=== PATIENT | male | born 1960 | race Caucasian/White ===

== ENCOUNTER 2016-12-31 19:47 | Emergency (ER) | payer MEDICAID ==
--- NOTE | 2016-12-31 19:52 | EDPHY ---
H & P Smoking Status: Never smoked Time Seen by Provider: 12/31/16 19:51 HPI/ROS: CHIEF COMPLAINT: Overdose HISTORY OF PRESENT ILLNESS: Zahra called 911 because the patient came into the coffee shop at [address] [place] [address] saying that he was going to overdose and kill himself and then went into the bathroom. On arrival the responding public safety police found him comatose on the bathroom floor. EMS brought him into the department combative stating he overdosed on his atenolol. REVIEW OF SYSTEMS: Denies any recent illnesses. A comprehensive 10 point review of systems is otherwise negative aside from elements mentioned in the history of present illness, but further history and review of systems is limited because of the patient's altered mental status on arrival.. PAST MEDICAL HISTORY: History and physical dated 09/09/2016 personally reviewed by myself includes GERD, hypertension, chronic back pain, mood disorder , alcoholism. Social history: Recent heavy alcohol. General Appearance: Combative and intermittently calm and screaming. Eyes: No scleral icterus. ENT, Mouth: Normal mucous membranes. Respiratory: Normal respiratory effort, breath sounds equal, lungs are clear to auscultation. Cardiovascular: Regular rate and rhythm. Gastrointestinal: Abdomen is soft and non tender. Neurological: Slurred speech, combative. Yelling and screaming saying "you fuckers" and throwing urinal and screaming in the room. Face symmetric, normal movement and sensation in all extremities. Skin: Warm and dry, no rashes. Musculoskeletal: No peripheral edema and no joint swelling. Psychiatric: Not agitated. Suicidal ideation. Emergency Department course/MDM: 10 mg Haldol and 2 mg Ativan for combative behavior, yelling and screaming, kicking and throwing things, to facilitate appropriate medical evaluation and for safety of patient and staff. Patient has an allergy listed to benzodiazepines in his chart but the result of getting the medication is listed as him getting agitated and belligerent. 2015: Calm and asleep after medical sedation. 2305: Vital signs at 9:55 p.m. and 97/55 blood pressure and heart rate 69. Signed out to Dr. Jim Snow at this time with plan for psychiatric re- evaluation when clinically sober and his sedation has worn off (Roland Fam) Constitutional: Initial Vital Signs Temperature (C) 36.2 C 12/31/16 20:31 Heart Rate 70 12/31/16 20:31 Respiratory Rate 16 12/31/16 20:31 Blood Pressure 143/87 H 12/31/16 20:31 O2 Sat (%) 93 12/31/16 20:31 O2 Delivery Mode Room Air O2 (L/minute) 3 Allergies/Adverse Reactions: Benzodiazepines Allergy (Verified 12/31/16 20:25) Other-Enter Comments Home Medications: Medication Instructions Recorded Esomeprazole Mag Trihydrate 40 mg PO DAILY 09/09/16 [Nexium] Esomeprazole Mag Trihydrate 40 mg PO DAILY #30 cap. 09/29/16 [Nexium] Atenolol 12/31/16 Medical Decision Making - Diagnostics EKG Interpretation: 12-lead EKG interpreted by me; official reading is in trace master. My interpretation is sinus rhythm with QRS 122, intraventricular conduction delay. Rate 63. (Roland Fam) ED Course/Re-evaluation: 2300 care assumed by me from Dr. Fam pending sobriety and mental health evaluation. [address] patient signed out to Dr. Conway pending mental health evaluation. There been no issues with this patient during my care overnight. (Tyler Snow) Differential Diagnosis: Differential diagnosis considered for depression including functional and major depression, situational depression, medication side effect, drugs and alcohol abuse. (Roland Fam) Critical Care Time: Critical care time spent by me, Dr. Fam, exclusively with the care of this patient was 30 minutes, exclusive of PA or LACING CUTTER time and exclusive of separate procedures. The organ system at risk was neuropsychiatric and I ordered multiple diagnostic studies including EKG and labs, cardiac monitoring, sedation with haloperidol and Ativan for excited delirium; to stabilize the patient and prevent worsening of the patient's condition. (Roland Fam) Other Provider: Patient's care transferred to md at 7:[address] Jim Lee. We are awaiting psychiatric evaluation. He is clinically sober. The patient has been medically cleared. His vital signs remained stable. 12:05 p.m. patient has been evaluated by Mental Health. They will release the hold. He had questions about his antihypertensives. He states that he occasionally blacks out when taking them and that it is associated with alcohol use only 75% of the time. He takes clonidine and states that he has severe rebound hypertension. I suggested that he discontinue the clonidine and increase his metoprolol to 50 mg twice daily. He had taken at 100 mg a day before. He will follow up with his primary doctor Tamir for re-evaluation in 2 days. (Jose Ramon Conway) - Data Points Laboratory Results: Laboratory Results 12/31/16 20:00 12/31/16 20:00 Medications Given: Discontinued Medications Haloperidol Lactate (Haldol Injection) 10 mg IM EDNOW ONE Stop: 12/31/16 19:59 Last Admin: 12/31/16 20:06 Dose: 10 mg Lorazepam (Ativan Injection) 2 mg IM EDNOW ONE Stop: 12/31/16 19:59 Last Admin: 12/31/16 20:06 Dose: 2 mg Departure - Departure Clinical Impression: Alcohol intoxication Qualifiers: Complication of substance-induced condition: uncomplicated Qualified Code(s): F10.120 - Alcohol abuse with intoxication, uncomplicated Condition: Good Instructions: Alcohol Intoxication (ED) Additional Instructions: Discontinue the clonidine and take your metoprolol 50 mg twice daily. Monitor your blood pressure is and report to Dr. Garnett in 48 hours. Referrals: NONE *PRIMARY CARE P,. [Primary Care Provider] - As per Instructions [facility],. [Clinic] - As per Instructions Maris Garnett [Certified Nurse Practioner] - As per Instructions
[2016-12-31] MEDS ORDERED: HALOPERIDOL LACT 5 MG/ML INJ ONE (19:56)
[2016-12-31] MEDS ORDERED: LORazepam 2 MG/ML INJ ONE (19:56)
[2016-12-31] MEDS ORDERED: HALOPERIDOL LACT 5 MG/ML INJ IM ONE (19:58)
[2016-12-31] MEDS ORDERED: LORazepam 2 MG/ML INJ IM ONE (19:58)
[2016-12-31 20:17] LABS: % IMMATURE GRANULYOCYTES 0.2 % (0.0-1.1); ABSOLUTE IMMATURE GRANULOCYTES 0.01 10^3/uL (0.00-0.10); ADD DIFF? NO; ADD MORPH? NO; ADD SCAN? NO; ATYPICAL LYMPHOCYTE FLAG 0 (0-99); FRAGMENT RBC FLAG 0 (0-99); HEMATOCRIT 43.4 % (40.0-51.0); HEMOGLOBIN 14.7 g/dL (13.7-17.5); LEFT SHIFT FLG 0 (0-99); LIPEMIA HEMOLYSIS FLAG 90 (0-99); MEAN CELL HEMOGLOBIN 32.2 pg (27.9-34.1); MEAN CELL HEMOGLOBIN CONCENTR. 33.9 g/dL (32.4-36.7); MEAN CELL VOLUME 95.2 fL (81.5-99.8); MEAN PLATELET VOLUME 10.5 fL (8.7-11.7); PLATELET CLUMPS FLAG 10 (0-99); PLATELET COUNT 212 10^3/uL (150-400); RED BLOOD CELL COUNT 4.56 10^6/uL (4.40-6.38); RED CELL DISTRIBUTION WIDTH 13.6 % (11.5-15.2)
--- NOTE | 2016-12-31 20:19 | CPEKG ---
Heart Rate: 63 RR Interval: 952 P-R Interval: 164 QRSD Interval: 122 QT Interval: 504 QTC Interval: 517 P [place]: 49 QRS [place]: 73 T Wave [place]: 38 EKG Severity - ABNORMAL ECG - EKG Impression: SINUS RHYTHM EKG Impression: IVCD, CONSIDER ATYPICAL RBBB Electronically Signed By: Roland Fam 31-Dec-2016 20:23:04
[2016-12-31 20:35] VITALS: TEMP 97.2
[2016-12-31 20:36] LABS: ANION GAP 14 mEq/L (8-16); CALCIUM 8.8 mg/dL (8.5-10.4); CARBON DIOXIDE 21 mEq/l (22-31); CHLORIDE 116 mEq/L (97-110); CREATININE 0.9 mg/dL (0.7-1.3); ETHANOL SERUM 247 mg/dL (0-10); GLOMERULAR FILTRATION RATE > 60; GLUCOSE 97 mg/dL (70-100); POTASSIUM 5.2 mEq/L (3.5-5.2); SALICYLATE < 1.0 mg/dL (2.0-20.0); SODIUM 151 mEq/L (134-144)
[2017-01-01 12:11] VITALS: BP 149/90; PULSE 68; RESP 20; O2SAT 94
== END 2017-01-01 12:50 | disposition home or self-care (01) ==
LOC: EDUNIT#
DX: F10.120 Alcohol abuse with intoxication, uncomplicated (principal); I10 Essential (primary) hypertension
CPT/HCPCS: 80305; G0480

== ENCOUNTER 2017-01-12 08:17 | Emergency (ER) | payer MEDICAID ==
--- NOTE | 2017-01-12 08:17 | EDPHY ---
H & P Time Seen by Provider: 01/12/17 08:17 HPI/ROS: CHIEF COMPLAINT: Chest pain HISTORY OF PRESENT ILLNESS: 56-year-old man was at the grocery store pharmacy be refilling his atenolol prescription when he developed lightheadedness and near syncope. He describes having left-sided chest pain yesterday and then continuously since since 5:00 a.m. which does not radiate not associated with other symptoms. No nausea or vomiting or diaphoresis. Called EMS and was brought to the emergency department for evaluation. He received aspirin by EMS and was 210/130 blood pressure in the ambulance. Chest pain does not radiate, not associated with cough or shortness of breath. A little bit worse with movement. REVIEW OF SYSTEMS: Eye: no change in vision ENT: no sore throat Cardiac: HPI, no actual syncope Pulmonary: no cough or SOB Abdomen: no vomiting, diarrhea, abdominal pain Musculoskeletal: Chronic back pain unchanged from usual Skin: no rash Neuro: no headache Constitutional: no fever : no urinary symptoms A comprehensive 10 point review of systems is otherwise negative aside from elements mentioned in the history of present illness. PAST MEDICAL HISTORY: H&P dated 09/08/2016 reviewed includes hypertension, chronic back pain, alcoholism. Social history: No alcohol for 48 hours, primary care in [place]. No cocaine or other drugs. No recent travel or immobilization. Family history: No coronary disease General Appearance: Alert and conversant, cooperative. Eyes: No scleral icterus. ENT, Mouth: Normal mucous membranes. Respiratory: Normal respiratory effort, breath sounds equal, lungs are clear to auscultation. Cardiovascular: Regular rate and rhythm. Gastrointestinal: Abdomen is soft and non tender. Neurological: Alert and oriented x3. Not confused Normally conversant. Face symmetric, normal movement and sensation in all extremities. Not tremulous. Skin: Warm and dry, no rashes. Musculoskeletal: No peripheral edema and no joint swelling. No calf tenderness. Psychiatric: Not agitated. Anxious. Emergency Department course/MDM: 855: Minimal chest pain. Usual oral atenolol 50 mg ordered. Normal oxygen saturation, symptoms resolved spontaneously, serial troponin negative. EKG does not show dynamic changes. Patient is discharged with outpatient primary care follow-up in [place] or with Cardiology in [place]. He does not have evidence of severe alcohol withdrawal in the emergency department. Constitutional: Initial Vital Signs Temperature (C) 36.8 C 01/12/17 08:35 Heart Rate 108 H 01/12/17 08:35 Respiratory Rate 20 01/12/17 08:35 Blood Pressure 190/132 H 01/12/17 08:35 O2 Sat (%) 98 01/12/17 08:35 O2 Delivery Mode Room Air Allergies/Adverse Reactions: Benzodiazepines Allergy (Verified 12/31/16 20:25) Other-Enter Comments Home Medications: Medication Instructions Recorded Esomeprazole Mag Trihydrate 40 mg PO DAILY 09/09/16 [Nexium] Esomeprazole Mag Trihydrate 40 mg PO DAILY #30 09/29/16 [Nexium] Atenolol 12/31/16 Medical Decision Making - Diagnostics EKG Interpretation: 12-lead EKG interpreted by me; official reading is in trace master. My interpretation is sinus rhythm, no acute ischemic changes, rate 95 Imaging: Chest x-ray personally interpreted by myself is normal. Differential Diagnosis: Differential diagnosis considered for chest pain including but not limited to myocardial ischemia, aortic dissection, pericarditis, pulmonary embolus, chest wall pain, pleural inflammation and pulmonary infectious causes. - Data Points Laboratory Results: Laboratory Results 01/12/17 08:25 01/12/17 08:40 01/12/17 01/12/17 01/12/17 11:05 08:40 08:25 WBC RBC Hgb Hct MCV MCH MCHC RDW Plt Count MPV Neut % (Auto) Lymph % (Auto) [place] % (Auto) Eos % (Auto) Baso % (Auto) Nucleat RBC Rel Count Absolute Neuts (auto) Absolute Lymphs (auto) Absolute Monos (auto) Absolute Eos (auto) Absolute Basos (auto) Absolute Nucleated RBC Immature Gran % Immature Gran # Sodium 138 mEq/L mEq/L REJ (134-144) Potassium 4.0 mEq/L mEq/L TNP (3.5-5.2) Chloride 107 mEq/L mEq/L TNP (97-110) Carbon Dioxide 18 mEq/l L mEq/l TNP (22-31) Anion Gap 13 mEq/L mEq/L TNP (8-16) BUN 12 mg/dL mg/dL TNP (7-23) Creatinine 0.8 mg/dL mg/dL TNP (0.7-1.3) Estimated GFR > 60 TNP Glucose 113 mg/dL H mg/dL TNP (70-100) Calcium 8.9 mg/dL mg/dL TNP (8.5-10.4) Troponin I < 0.012 ng/mL ng/mL < 0.012 ng/mL ng/mL REJ (0-0.034) (0-0.034) Specimen Hemolysis WELL LOGGING M[employer] ANALYSIS CAPTAIN 01/12/17 08:25 WBC 5.28 10^3/uL 10^3/uL (3.80-9.50) RBC 4.72 10^6/uL 10^6/uL (4.40-6.38) Hgb 15.4 g/dL g/dL (13.7-17.5) Hct 46.4 % % (40.0-51.0) MCV 98.3 fL fL (81.5-99.8) MCH 32.6 pg pg (27.9-34.1) MCHC 33.2 g/dL g/dL (32.4-36.7) RDW 13.6 % % (11.5-15.2) Plt Count 179 10^3/uL 10^3/uL (150-400) MPV 10.4 fL fL (8.7-11.7) Neut % (Auto) 64.4 % % (39.3-74.2) Lymph % (Auto) 26.7 % % (15.0-45.0) [place] % (Auto) 6.3 % % (4.5-13.0) Eos % (Auto) 1.7 % % (0.6-7.6) Baso % (Auto) 0.9 % % (0.3-1.7) Nucleat RBC Rel Count 0.0 % % (0.0-0.2) Absolute Neuts (auto) 3.40 10^3/uL 10^3/uL (1.70-6.50) Absolute Lymphs (auto) 1.41 10^3/uL 10^3/uL (1.00-3.00) Absolute Monos (auto) 0.33 10^3/uL 10^3/uL (0.30-0.80) Absolute Eos (auto) 0.09 10^3/uL 10^3/uL (0.03-0.40) Absolute Basos (auto) 0.05 10^3/uL 10^3/uL (0.02-0.10) Absolute Nucleated RBC 0.00 10^3/uL 10^3/uL (0-0.01) Immature Gran % 0.0 % % (0.0-1.1) Immature Gran # 0.00 10^3/uL 10^3/uL (0.00-0.10) Sodium Potassium Chloride Carbon Dioxide Anion Gap BUN Creatinine Estimated GFR Glucose Calcium Troponin I Specimen Hemolysis Medications Given: Discontinued Medications Atenolol (Tenormin) 50 mg PO EDNOW ONE Stop: 01/12/17 08:54 Last Admin: 01/12/17 09:18 Dose: 50 mg Departure - Departure Disposition: Home, Routine, Self-Care Clinical Impression: Chest pain Qualifiers: Chest pain type: unspecified Qualified Code(s): R07.9 - Chest pain, unspecified Condition: Good Instructions: Chest Pain (ED) Referrals: Patient,NotPresent [Unknown] - As per Instructions (your doctor in [place]) Troy Amador MD [Medical Doctor] - As per Instructions
--- NOTE | 2017-01-12 08:29 | CPEKG ---
Heart Rate: 95 RR Interval: 632 P-R Interval: 140 QRSD Interval: 106 QT Interval: 380 QTC Interval: 478 P [place]: 60 QRS [place]: 81 T Wave [place]: 40 EKG Severity - BORDERLINE ECG - EKG Impression: SINUS RHYTHM EKG Impression: BORDERLINE PROLONGED QT INTERVAL Electronically Signed By: Roland Fam 12-Jan-2017 09:26:25
[2017-01-12 08:37] LABS: ADD DIFF? NO; ADD MORPH? NO; ADD SCAN? NO; ATYPICAL LYMPHOCYTE FLAG 0 (0-99); FRAGMENT RBC FLAG 0 (0-99); HEMATOCRIT 46.4 % (40.0-51.0); HEMOGLOBIN 15.4 g/dL (13.7-17.5); LEFT SHIFT FLG 0 (0-99); LIPEMIA HEMOLYSIS FLAG 80 (0-99); MEAN CELL HEMOGLOBIN 32.6 pg (27.9-34.1); MEAN CELL HEMOGLOBIN CONCENTR. 33.2 g/dL (32.4-36.7); MEAN CELL VOLUME 98.3 fL (81.5-99.8); MEAN PLATELET VOLUME 10.4 fL (8.7-11.7); PLATELET CLUMPS FLAG 0 (0-99); PLATELET COUNT 179 10^3/uL (150-400); RED BLOOD CELL COUNT 4.72 10^6/uL (4.40-6.38); RED CELL DISTRIBUTION WIDTH 13.6 % (11.5-15.2)
[2017-01-12 08:38] VITALS: TEMP 98.2
[2017-01-12] MEDS ORDERED: ATENOLOL 50 MG TAB PO ONE (08:53)
[2017-01-12 09:25] LABS: ANION GAP 13 mEq/L (8-16); CALCIUM 8.9 mg/dL (8.5-10.4); CARBON DIOXIDE 18 mEq/l (22-31); CHLORIDE 107 mEq/L (97-110); CREATININE 0.8 mg/dL (0.7-1.3); GLOMERULAR FILTRATION RATE > 60; GLUCOSE 113 mg/dL (70-100); SODIUM 138 mEq/L (134-144)
[2017-01-12 09:37] LABS: TROPONIN I < 0.012 ng/mL (0-0.034)
[2017-01-12 10:04] VITALS: RESP 16
[2017-01-12 12:04] VITALS: BP 164/104; PULSE 73; O2SAT 96
== END 2017-01-12 12:03 | disposition home or self-care (01) ==
LOC: EDUNIT#
DX: R07.9 Chest pain, unspecified (principal); I10 Essential (primary) hypertension

== ENCOUNTER 2017-02-08 00:49 | Emergency (ER) | payer MEDICAID ==
[2017-02-08 01:04] VITALS: TEMP 97.7
--- NOTE | 2017-02-08 01:29 | EDPHY ---
H & P Stated Complaint: left foot swelling on and off for several months, worse today Time Seen by Provider: 02/08/17 01:21 HPI/ROS: CHIEF COMPLAINT: Bilateral leg swelling HISTORY OF PRESENT ILLNESS: Patient is a 56-year-old man with a history of hypertension and alcoholism who comes to the emergency department complaining of bilateral lower extremity swelling. States that it has been this way on off for the last month but is worse over the last 3 days. He has not had a fever. He denies any trauma. He denies any travel. He does smoke. He denies chest pain or shortness of breath. Does have blisters on the heels of his feet. REVIEW OF SYSTEMS: Constitutional: denies: chills, fever, recent illness, recent injury EENTM: denies: blurred vision, double vision, nose congestion Respiratory: denies: cough, shortness of breath Cardiac: denies: chest pain, irregular heart rate, lightheadedness, palpitations Gastrointestinal/Abdominal: denies: abdominal pain, diarrhea, nausea, vomiting, blood streaked stools Genitourinary: denies: dysuria, frequency, hematuria, pain Musculoskeletal: denies: joint pain, muscle pain Skin: see HPI Neurological: denies: headache, numbness, paresthesia, tingling, dizziness, weakness Hematologic/Lymphatic: denies: blood clots, easy bleeding, easy bruising Immunologic/allergic: denies: HIV/AIDS, transplant EXAM: GENERAL: Well-appearing, well-nourished and in no acute distress. HEAD: Atraumatic, normocephalic. EYES: Pupils equal round and reactive to light, extraocular movements intact, sclera anicteric, conjunctiva are normal. ENT: TMs normal, nares patent, oropharynx clear without exudates. Moist mucous membranes. NECK: Normal range of motion, supple without lymphadenopathy or JVD. LUNGS: Breath sounds clear to auscultation bilaterally and equal. No wheezes rales or rhonchi. HEART: Regular rate and rhythm without murmurs, rubs or gallops. ABDOMEN: Soft, nontender, normoactive bowel sounds. No guarding, no rebound. No masses appreciated. BACK: No CVA tenderness, no spinal tenderness, step-offs or deformities EXTREMITIES: 1+ pitting edema bilaterally. Not warm to the touch, NEUROLOGICAL: Cranial nerves II through XII grossly intact. Normal speech, normal gait. 5/5 strength, normal movement in all extremities, normal sensation PSYCH: Normal mood, normal affect. SKIN: Very minimal erythema over lower shins, erythema to bottom of feet with several blisters on heels. Not broken. Source: Patient Exam Limitations: No limitations - Personal History Current Tetanus/Diphtheria Vaccine: Unsure Current Tetanus Diphtheria and Acellular Pertussis (TDAP): Unsure Tetanus Vaccine Date: <10 years - Medical/Surgical History Hx Asthma: No Hx Chronic Respiratory Disease: No Hx Diabetes: No Hx Cardiac Disease: No Hx Renal Disease: No Hx Cirrhosis: No Hx Alcoholism: Yes Hx HIV/AIDS: No Hx Splenectomy or Spleen Trauma: No Other PMH: IBS, ETOH abuse, HTN, Back Pain, possible CVA, pre-diabetic - Family History Significant Family History: Hypertension - Social History Smoking Status: Never smoked Alcohol Use: Heavy Drug Use: None Constitutional: Initial Vital Signs Temperature (C) 36.5 C 02/08/17 01:02 Heart Rate 72 02/08/17 01:02 Respiratory Rate 18 02/08/17 01:02 Blood Pressure 197/111 H 02/08/17 01:02 O2 Sat (%) 98 02/08/17 01:02 O2 Delivery Mode Room Air Allergies/Adverse Reactions: Benzodiazepines Allergy (Verified 12/31/16 20:25) Other-Enter Comments diazepam [From Valium] Allergy (Verified 02/08/17 00:59) Home Medications: Medication Instructions Recorded Esomeprazole Mag Trihydrate 40 mg PO DAILY 09/09/16 [Nexium] Esomeprazole Mag Trihydrate 40 mg PO DAILY #30 junior. 09/29/16 [Nexium] Atenolol 12/31/16 Clindamycin HCl [Clindamycin] 450 mg PO TID #30 cap 02/08/17 Clonidine 02/08/17 Medical Decision Making - Diagnostics Imaging: Study: Ultrasound of the: Lower extremities Indication: Lower extremity swelling Results: US scan of the lower extremities was obtained. The results of the study are negative for DVT. The study was read by the radiologist, Dr. Hnerique Plummer. I viewed the images myself on the PACS system. X-ray: chest x-ray was obtained. I viewed the images myself on the PACS system. My interpretation of the images is: negative for acute disease . The radiologist interpretation is pending. ED Course/Re-evaluation: We discussed the patient's lab and ultrasound results. They are very reassuring. Suspect that he has a low-grade cellulitis. I will start him on antibiotics. He agrees not to drink. We discussed indications for returning and the need for follow-up. He is currently afebrile has a normal white blood cell count. Differential Diagnosis: Partial list of the Differential diagnosis considered include but were not limited to; DVT, cellulitis, trench foot , phlebitis and although unlikely based on the history and physical exam, I also considered renal failure, heart failure, trauma. I discussed these differential diagnoses and the plan with the patient as well as the usual and expected course. The patient understands that the diagnosis is provisional and that in medicine we are not always correct and that further workup is often warranted. Usual and customary warnings were given. All of the patient's questions were answered. The patient was instructed to return to the emergency department should the symptoms at all worsen or return, otherwise to followup with the physician as we discussed. - Data Points Laboratory Results: Laboratory Results 02/08/17 01:27 02/08/17 01:27 02/08/17 02/08/17 02/08/17 01:27 01:27 01:27 WBC 4.57 10^3/uL 10^3/uL (3.80-9.50) RBC 4.43 10^6/uL 10^6/uL (4.40-6.38) Hgb 14.2 g/dL g/dL (13.7-17.5) Hct 42.1 % % (40.0-51.0) MCV 95.0 fL fL (81.5-99.8) MCH 32.1 pg pg (27.9-34.1) MCHC 33.7 g/dL g/dL (32.4-36.7) RDW 13.7 % % (11.5-15.2) Plt Count 191 10^3/uL 10^3/uL (150-400) MPV 11.0 fL fL (8.7-11.7) Neut % (Auto) 49.5 % % (39.3-74.2) Lymph % (Auto) 35.4 % % (15.0-45.0) [place] % (Auto) 7.7 % % (4.5-13.0) Eos % (Auto) 6.3 % % (0.6-7.6) Baso % (Auto) 0.9 % % (0.3-1.7) Nucleat RBC Rel Count 0.0 % % (0.0-0.2) Absolute Neuts (auto) 2.26 10^3/uL 10^3/uL (1.70-6.50) Absolute Lymphs (auto) 1.62 10^3/uL 10^3/uL (1.00-3.00) Absolute Monos (auto) 0.35 10^3/uL 10^3/uL (0.30-0.80) Absolute Eos (auto) 0.29 10^3/uL 10^3/uL (0.03-0.40) Absolute Basos (auto) 0.04 10^3/uL 10^3/uL (0.02-0.10) Absolute Nucleated RBC 0.00 10^3/uL 10^3/uL (0-0.01) Immature Gran % 0.2 % % (0.0-1.1) Immature Gran # 0.01 10^3/uL 10^3/uL (0.00-0.10) PT 12.8 SEC SEC (12.0-15.0) INR 0.97 (0.83-1.16) APTT 26.0 SEC SEC (23.0-38.0) D-Dimer 0.29 ug/mLFEU ug/mLFEU (0.00-0.50) Sodium 144 mEq/L mEq/L (134-144) Potassium 4.2 mEq/L mEq/L (3.5-5.2) Chloride 108 mEq/L mEq/L (97-110) Carbon Dioxide 25 mEq/l mEq/l (22-31) Anion Gap 11 mEq/L mEq/L (8-16) BUN 19 mg/dL mg/dL (7-23) Creatinine 1.0 mg/dL mg/dL (0.7-1.3) Estimated GFR > 60 Glucose 105 mg/dL H mg/dL (70-100) Calcium 9.5 mg/dL mg/dL (8.5-10.4) Total Bilirubin 0.4 mg/dL mg/dL (0.1-1.4) Conjugated Bilirubin 0.4 mg/dL mg/dL (0.0-0.5) Unconjugated Bilirubin 0.0 mg/dL mg/dL (0.0-1.1) AST 32 IU/L IU/L (17-59) ALT 40 IU/L IU/L (21-72) Alkaline Phosphatase 63 IU/L IU/L (38-126) Troponin I < 0.012 ng/mL ng/mL (0-0.034) NT-Pro-B Natriuret Pep 133 pg/mL H pg/mL (0-125) Total Protein 7.2 g/dL g/dL (6.3-8.2) Albumin 4.2 g/dL g/dL (3.5-5.0) Medications Given: Discontinued Medications Clindamycin (Clindamycin) 450 mg PO EDNOW ONE PRN Reason: Protocol Stop: 02/08/17 03:29 Last Admin: 02/08/17 03:45 Dose: 450 mg Departure - Departure Disposition: Home, Routine, Self-Care Clinical Impression: Cellulitis Qualifiers: Site of cellulitis: extremity Site of cellulitis of extremity: lower extremity Laterality: unspecified laterality Qualified Code(s): L03.119 - Cellulitis of unspecified part of limb Condition: Fair Instructions: Cellulitis (ED) Referrals: [facility] [Other] - As per Instructions Prescriptions: Clindamycin HCl [Clindamycin] 450 mg PO TID #30 cap
[2017-02-08 02:38] LABS: % IMMATURE GRANULYOCYTES 0.2 % (0.0-1.1); ABSOLUTE IMMATURE GRANULOCYTES 0.01 10^3/uL (0.00-0.10); ADD DIFF? NO; ADD MORPH? NO; ADD SCAN? NO; ATYPICAL LYMPHOCYTE FLAG 20 (0-99); FRAGMENT RBC FLAG 0 (0-99); HEMATOCRIT 42.1 % (40.0-51.0); HEMOGLOBIN 14.2 g/dL (13.7-17.5); LEFT SHIFT FLG 0 (0-99); LIPEMIA HEMOLYSIS FLAG 80 (0-99); MEAN CELL HEMOGLOBIN 32.1 pg (27.9-34.1); MEAN CELL HEMOGLOBIN CONCENTR. 33.7 g/dL (32.4-36.7); PLATELET CLUMPS FLAG 30 (0-99); PLATELET COUNT 191 10^3/uL (150-400); RED BLOOD CELL COUNT 4.43 10^6/uL (4.40-6.38); RED CELL DISTRIBUTION WIDTH 13.7 % (11.5-15.2)
[2017-02-08 02:51] LABS: INR 0.97 (0.83-1.16); PROTIME(PATIENT) 12.8 SEC (12.0-15.0)
[2017-02-08 02:55] LABS: ALANINE AMINOTRANSFERASE 40 IU/L (21-72); ALBUMIN 4.2 g/dL (3.5-5.0); ALKALINE PHOSPHATASE 63 IU/L (38-126); ANION GAP 11 mEq/L (8-16); ASPARTATE AMINOTRANSFERASE 32 IU/L (17-59); BILIRUBIN,TOTAL 0.4 mg/dL (0.1-1.4); BILIRUBIN-CONJUGATED 0.4 mg/dL (0.0-0.5); CALCIUM 9.5 mg/dL (8.5-10.4); CARBON DIOXIDE 25 mEq/l (22-31); CHLORIDE 108 mEq/L (97-110); GLOMERULAR FILTRATION RATE > 60; GLUCOSE 105 mg/dL (70-100); POTASSIUM 4.2 mEq/L (3.5-5.2); SODIUM 144 mEq/L (134-144); TOTAL PROTEIN 7.2 g/dL (6.3-8.2)
[2017-02-08 03:06] LABS: TROPONIN I < 0.012 ng/mL (0-0.034)
[2017-02-08] MEDS ORDERED: CLINDAMYCIN 150 MG CAP PO ONE (03:28)
[2017-02-08 03:46] VITALS: BP 141/91; PULSE 69; RESP 18; O2SAT 98
== END 2017-02-08 03:45 | disposition home or self-care (01) ==
LOC: EDUNIT#
DX: L03.113 Cellulitis of right upper limb (principal); L03.114 Cellulitis of left upper limb; I10 Essential (primary) hypertension

== ENCOUNTER 2017-07-27 22:55 | Emergency (ER) | payer MEDICAID ==
[2017-07-27 23:09] VITALS: RESP 20; TEMP 98.1
[2017-07-27 23:37] LABS: COLOR YELLOW; LEUKOCYTE ESTERASE,URINE NEGATIVE (NEGATIVE); NITRITE,URINE NEGATIVE (NEGATIVE)
[2017-07-27] MEDS ORDERED: LIDOCAINE 5% 1 EA PATCH TD SCH (23:45)
[2017-07-27] MEDS ORDERED: KETOROLAC 30 MG/1 ML SDV IM ONE (23:53)
--- NOTE | 2017-07-27 23:53 | EDPHY ---
H & P Stated Complaint: back pain Time Seen by Provider: 07/27/17 23:34 HPI/ROS: Chief Complaint: Back pain HPI: 56-year-old homeless male with a history of chronic back pain presenting with lower back pain consistent with prior episodes of back pain. Patient states that he has only been taking ibuprofen with no relief. Has been walking with some discomfort. No new numbness or weakness. No urinary symptoms. No fevers or chills. Is not an IV drug user. ROS: 10 point Review of Systems is negative except as noted in the HPI. PMH: Chronic back pain Social History: No smoking, occasional alcohol, occasional marijuana Family History: non-contributory Physical Exam: Gen: Awake, Alert, No Distress HEENT: Nose: no rhinorrhea Eyes: PERRLA, EOMI Mouth: Moist mucosa Neck: Supple, no JVD Chest: nontender, lungs clear to auscultation Heart: S1, S2 normal, no murmur Abd: Soft, non-tender, no guarding Back: no CVA tenderness, no midline tenderness he has left greater than right paraspinal tenderness with palpable muscle spasm reproducing his presenting complaint. Ext: no edema, non-tender Skin: no rash Neuro: CN II-XII intact, Sensation grossly intact, Strength 5/5 in bilateral upper and lower extremities - Personal History Tetanus Vaccine Date: <10 years - Medical/Surgical History Hx Asthma: No Hx Chronic Respiratory Disease: No Hx Diabetes: No Hx Cardiac Disease: No Hx Renal Disease: No Hx Cirrhosis: No Hx Alcoholism: Yes Hx HIV/AIDS: No Hx Splenectomy or Spleen Trauma: No Other PMH: IBS, ETOH abuse, HTN, Back Pain, possible CVA, pre-diabetic - Social History Smoking Status: Never smoked Constitutional: Initial Vital Signs Temperature (C) 36.7 C 07/27/17 23:08 Heart Rate 98 07/27/17 23:08 Respiratory Rate 20 07/27/17 23:08 Blood Pressure 161/95 H 07/27/17 23:08 O2 Sat (%) 95 07/27/17 23:08 O2 Delivery Mode Room Air Allergies/Adverse Reactions: Benzodiazepines Allergy (Verified 12/31/16 20:25) Other-Enter Comments diazepam [From Valium] Allergy (Verified 02/08/17 00:59) Home Medications: Medication Instructions Recorded Esomeprazole Mag Trihydrate 40 mg PO DAILY 09/09/16 [Nexium] Esomeprazole Mag Trihydrate 40 mg PO DAILY #30 cap. 09/29/16 [Nexium] Atenolol 12/31/16 Clindamycin HCl [Clindamycin] 450 mg PO TID #30 cap 02/08/17 Clonidine 02/08/17 Cymbalta 07/27/17 Nexium 07/27/17 Olanzapine 07/27/17 Medical Decision Making ED Course/Re-evaluation: Patient is improved after nonnarcotic analgesia. He has no red flags for epidural abscess or cauda equina syndrome. He is neurologically intact. He is ambulating unassisted in the emergency department. Will be discharged with a Lidoderm patch, follow up with primary care in 2-3 days. - Data Points Laboratory Results: 07/27/17 22:44 Urine Color YELLOW Urine Appearance CLEAR Urine pH 5.0 (5.0-7.5) Ur Specific Luther 1.014 (1.002-1.030) Urine Protein NEGATIVE (NEGATIVE) Urine Ketones NEGATIVE (NEGATIVE) Urine Blood NEGATIVE (NEGATIVE) Urine Nitrate NEGATIVE (NEGATIVE) Urine Bilirubin NEGATIVE (NEGATIVE) Urine Urobilinogen NEGATIVE EU EU (0.2-1.0) Ur Leukocyte Esterase NEGATIVE (NEGATIVE) Urine Glucose NEGATIVE (NEGATIVE) Medications Given: Discontinued Medications Cyclobenzaprine HCl (Flexeril) 10 mg PO EDNOW ONE Stop: 07/28/17 01:52 Last Admin: 07/28/17 02:02 Dose: 10 mg Ketorolac Tromethamine (Toradol) 30 mg IM EDNOW ONE Stop: 07/27/17 23:54 Last Admin: 07/28/17 00:01 Dose: 30 mg Lidocaine (Lidoderm 5%) 1 ea TD DAILY JENNIFER Stop: 01/23/18 23:44 Last Admin: 07/28/17 00:01 Dose: 1 ea Departure - Departure Disposition: Home, Routine, Self-Care Clinical Impression: Back pain Condition: Good Instructions: Back Pain (ED) Additional Instructions: Follow up with your doctor in 2-3 days for further evaluation. You may continue applying Lidoderm patches every day. These are available over- the-counter. Continue taking acetaminophen and ibuprofen as needed for pain. Return emergency department for increasing numbness or weakness, fevers, chills , or any other concerns. Referrals: MG SANCHEZ [Other] - As per Instructions
[2017-07-28] MEDS ORDERED: CYCLOBENZAPRINE 10 MG TAB PO ONE (01:51)
[2017-07-28 02:36] VITALS: BP 169/103; PULSE 77; O2SAT 97
== END 2017-07-28 02:36 | disposition home or self-care (01) ==
LOC: EDUNIT#
DX: M54.9 Dorsalgia, unspecified (principal); I10 Essential (primary) hypertension
CPT/HCPCS: J1885